=== PATIENT | female | born 1990 | race African-American/Black ===

== ENCOUNTER 2016-10-07 14:45 | Emergency (ER) | payer MEDICAID ==
[~2016-10-07] VITALS: Ht 177.8 cm; Wt 57.2 kg
[2016-10-07 17:15] VITALS: BP 112/80
[2016-10-07] MEDS ORDERED: ACETAMINOPHEN 325 MG TAB PO ONE (18:00)
[2016-10-07 18:16] LABS: Urine Bilirubin Negative (Negative); Urine Blood Negative /uL (Negative); Urine Color Yellow (Yellow); Urine Glucose Normal (Normal); Urine Ketone 1+ (Negative); Urine Nitrite Negative (Negative); Urine RBC 4 /hpf (0 - 4); Urine Squamous Epithelial Cell MANY /hpf (<5); Urine Urobilinogen Normal (Negative)
[2016-10-07] MEDS ORDERED: ONDANSETRON ODT 4 MG TAB PO ONE (18:45)
== END 2016-10-07 18:56 | disposition home or self-care (01) ==
LOC: ER 14:54
DX: O23.42 Unspecified infection of urinary tract in pregnancy, second trimester (principal); Z3A.15 15 weeks gestation of pregnancy
CPT/HCPCS: 76805; 81001; 81002; 99285; Q0162

== ENCOUNTER 2017-03-07 13:20 | Observation (INO) | payer MEDICAID ==
[2017-03-07 14:38] LABS: Urine Bilirubin Negative (Negative); Urine Blood Negative /uL (Negative); Urine Color Yellow (Yellow); Urine Glucose Normal (Normal); Urine Ketone Negative (Negative); Urine Nitrite Negative (Negative); Urine RBC 1 /hpf (0 - 4); Urine Squamous Epithelial Cell FEW /hpf (<5); Urine Urobilinogen Normal (Negative)
== END 2017-03-07 15:45 | disposition home or self-care (01) | DRG 566 ==
LOC: LDRP 13:20
PROVIDERS: ADMIT Specialist; ATTEND Specialist
DX: O62.9 Abnormality of forces of labor, unspecified (principal); Z3A.36 36 weeks gestation of pregnancy
CPT/HCPCS: 59025; 76815; 80307; 81001; 81002; G0378

== ENCOUNTER 2017-03-29 06:10 | Observation (INO) | payer MEDICAID ==
[2017-03-29] MEDS ORDERED: ACETAMINOPHEN 325 MG TAB PO ONE ×2 (06:50→07:00)
== END 2017-03-29 08:00 | disposition home or self-care (01) | DRG 566 ==
LOC: LDRP 06:10
PROVIDERS: ADMIT Specialist; ATTEND Specialist
DX: O46.93 Antepartum hemorrhage, unspecified, third trimester (principal); Z3A.39 39 weeks gestation of pregnancy
CPT/HCPCS: 59025; 76815; 81002; G0378

== ENCOUNTER 2023-01-06 08:10 | Inpatient (IN) | payer MEDICAID ==
[~2023-01-06] VITALS: Ht 177.8 cm; Wt 70.8 kg
[2023-01-06] MEDS ORDERED: PROMETHAZINE HCL 25 MG/ML 1ML IV PRN (08:45)
[2023-01-06] MEDS ORDERED: PENICILLIN G POT 5MIL/D5 50ML 50 ML IV ONE (08:45)
[2023-01-06] MEDS ORDERED: WITCH HAZEL-GLYCERIN PAD TOP PRN (08:45)
[2023-01-06] MEDS ORDERED: PHISODERM TOP SOLN 240ML BTL TOP PRN (08:45)
[2023-01-06] MEDS ORDERED: DERMOPLAST 60ML BOTTLE TOP PRN (08:45)
[2023-01-06] MEDS ORDERED: LACTATED RINGER'S 1,000 ML IV SCH (08:45)
[2023-01-06] MEDS ORDERED: BUTORPHANOL TARTRATE 2 MG/1 ML VIAL IV PRN ×2 (08:45)
[2023-01-06] MEDS ORDERED: LIDOCAINE 2%HCL (LOCAL ANESTH.) INJ 20ML MDV IJ PRN (08:45)
[2023-01-06] MEDS ORDERED: LACT. RINGERS/OXYTOCIN 20UNITS 500 ML IV ONE ×2 (09:30→10:00)
[2023-01-06] MEDS ORDERED: miSOPROStol 100 mcg TAB SL PRN (09:30)
[2023-01-06] MEDS ORDERED: METHYLERGONOVINE MALEATE 0.2 MG/ML AMP IM ONE (09:30)
[2023-01-06 09:34] LABS: Urine Bacteria FEW /hpf (None Seen); Urine Blood Negative /uL (Negative); Urine Mucus FEW (None Seen); Urine Specific Gravity 1.021 (1.001-1.035); Urine WBC 2 /hpf (0 - 5)
[2023-01-06 09:42] LABS: Albumin 2.9 g/dL (3.4-5.0); Calcium 8.8 mg/dL (8.5-10.1); Potassium 4.1 mmol/L (3.5-5.1)
[2023-01-06 09:43] LABS: Basophils # (auto) 0.1 10 ^3/uL (0-0.2); Basophils % (auto) 1.4 % (0.0-2.0); Eosinophils # (auto) 0.1 10 ^3/uL (0-0.8); Eosinophils % (auto) 0.8 % (0.0-7.0); Hematocrit 37.1 % (36.0-46.0); Hemoglobin 12.4 g/dL (12.2-16.2); Lymphocytes # (auto) 1.7 10 ^3/uL (0.4-5.4); Lymphocytes % (auto) 19.9 % (10.0-50.0); Mean Corpuscular Hemoglobin 29.9 pg (28.0-32.0); Mean Corpuscular Hgb Conc. 33.6 g/dL (32.0-36.0); Monocytes # (auto) 0.6 10 ^3/uL (0-1.3); Monocytes % (auto) 7.6 % (0.0-12.0); Neutrophils % (auto) 70.3 % (37.0-80.0); Nucleated Red Blood Cells % 0.1 %; Red Blood Cells 4.17 10^6/uL (4.0-5.20); Red Cell Distribution Width 12.6 % (11.8-14.3); White Blood Cell 8.5 10^3/uL (4.4-10.8)
[2023-01-06 09:45] LABS: BUN/Creatinine Ratio 10.7 (10.0-20.0); Bilirubin, Total 0.4 mg/dL (0.2-1.0); Total Protein 7.3 g/dL (6.4-8.2)
[2023-01-06 09:46] LABS: Alcohol, Urine < 3.0 mg/dL (0-10); Amphetamine Screen, Urine NEGATIVE (NEGATIVE); Barbiturate Scree,Urine NEGATIVE (NEGATIVE); Benzodiazephine Screen, Urine NEGATIVE (NEGATIVE); Cannabinoid Screen, Urine NEGATIVE (NEGATIVE); Cocaine Screen, Urine NEGATIVE (NEGATIVE); Opiate Scree,Urine NEGATIVE (NEGATIVE); Phencyclidine Screen, Urine NEGATIVE (NEGATIVE)
[2023-01-06 09:47] LABS: INR 0.92 (0.9-1.15); Partial Thromboplastin Time 25.8 sec (24.6-33.4)
[2023-01-06] MEDS ORDERED: ROPIVACAINE HCL 200 ML EPI SCH (10:45)
[2023-01-06] MEDS ORDERED: ePHEDrine SULFATE 50 MG/ML AMP IV ONE (10:45)
[2023-01-06] MEDS ORDERED: LIDOCAINE HCL 2 %PF INJ 10ML AMP IJ ONE (10:45)
[2023-01-06] MEDS ORDERED: LACTATED RINGER'S 1,000 ML IV ONE (10:45)
[2023-01-06] MEDS ORDERED: fentaNYL CITRATE 100 MCG/2 ML VL IV ONE (10:45)
[2023-01-06] MEDS ORDERED: NALOXONE HCL 0.4 MG/ML VIAL IV ONE (10:45)
[2023-01-06] MEDS ORDERED: PENICILLIN G POTASSIUM 2,500,000 UNITS in D5W 5% 50 ML IV SCH (12:45)
[2023-01-06] MEDS ORDERED: ONDANSETRON ODT 4 MG TAB PO PRN (14:30)
[2023-01-06] MEDS: ACETAMINOPHEN 325 MG TAB PO PRN ×2 (14:44→21:34)
[2023-01-06 18:47] VITALS: BP 131/82
[2023-01-06] MEDS ORDERED: DOCUSATE SOD 100 MG CAP PO SCH (22:00)
[2023-01-06 23:20] VITALS: BP 121/61
[2023-01-07] MEDS: ACETAMINOPHEN 325 MG TAB PO PRN (02:19)
[2023-01-07 02:43] VITALS: BP 129/78
[2023-01-07] MEDS: IBUPROFEN 600 MG TAB PO PRN ×2 (05:03→11:07)
[2023-01-07 06:41] VITALS: BP 117/73
[2023-01-07 08:06] LABS: RPR Non Reactive (Non Reactive)
[2023-01-07 11:18] VITALS: BP 119/77
[2023-01-07 15:18] VITALS: BP 132/73
[2023-01-07] MEDS ORDERED: PREN-96 PO (16:21)
[2023-01-08 08:07] LABS: Rubella Antibodies, IgG 0.94 index (Immune >0.99)
== END 2023-01-07 17:39 | disposition home or self-care (01) | DRG 560 ==
LOC: LDRP 08:10 → OBSVTOIN 08:40 → LDRP 08:41
PROVIDERS: ADMIT Obstetrics & Gynecology; ATTEND Obstetrics & Gynecology
PROC: 10E0XZZ Delivery of Products of Conception, External Approach (ICD-10-PCS; principal; 2023-01-06)
DX: O80 Encounter for full-term uncomplicated delivery (principal); Z37.0 Single live birth; Z20.822 Contact with and (suspected) exposure to COVID-19; Z3A.39 39 weeks gestation of pregnancy
CPT/HCPCS: 36415; 59025; 59409; 62282; 76805; 80053; 80307; 81001; 81002; 85025; 85610; 85730; 86592; 86703; 86762; 86850; 86900; 86901; 87340; 87426; 94760; 96360; 96361; 96365; 96366; 96372; 96374; 96375; G0378; J2540; J2590; J7060